=== PATIENT | female | born 1995 ===

== ENCOUNTER 2020-06-26 17:16 | Inpatient (IN) | payer OTHER ==
[~2020-06-26] VITALS: Ht 154.9 cm; Wt 90.3 kg
[2020-06-26] MEDS ORDERED: PRENATAL TABLE1 EAC1 PO (17:35)
== END 2020-06-29 12:12 | disposition home or self-care (01) | DRG 807 ==
LOC: LDR 17:16 → OB/GYN 06-27 19:35
PROVIDERS: ADMIT Obstetrics & Gynecology; ATTEND Obstetrics & Gynecology
PROC: 10E0XZZ Delivery of Products of Conception, External Approach (ICD-10-PCS; principal; 2020-06-27)
PROC: 0KQM0ZZ Repair Perineum Muscle, Open Approach (ICD-10-PCS; 2020-06-27)
PROC: 4A1HXFZ Monitoring of Products of Conception, Cardiac Rhythm, External Approach (ICD-10-PCS; 2020-06-27)
PROC: 3E033VJ Introduction of Other Hormone into Peripheral Vein, Percutaneous Approach (ICD-10-PCS; 2020-06-27)
DX: O70.1 Second degree perineal laceration during delivery (principal); Z37.0 Single live birth; Z3A.40 40 weeks gestation of pregnancy; Z20.828 Contact with and (suspected) exposure to other viral communicable diseases